=== PATIENT | male | born 1955 | race Caucasian/White ===

== ENCOUNTER 2018-12-15 07:11 | Inpatient (IN) ==
--- NOTE | 2018-12-02 15:45 | PAT Medication Instructions ---
Medication Instructions Date of Service December 02, 2018 Home Medications allopurinol 300 mg PO QAM alpha lipoic acid 600 mg PO QAM amlodipine 5 mg PO UD PRN aspirin [Aspir-81] 81 mg PO QPM aspirin [Aspir-81] 162 mg PO QAM cholecalciferol (vitamin D3) [Vitamin D3] 2,000 unit PO DAILY glucos sul 4MNu-vdy-ruqjn-C-Mn [Glucosamine Chondroitin] 2 cap PO QAM hydrocodone-acetaminophen 1 tab PO UD PRN fozbr-sj-8-hec-gvh-jieosqc-ast [krill oil] 1 cap PO DAILY metformin 500 mg PO BID potassium chloride 8 meq PO BID potassium chloride 10 meq PO QAM spironolactone 25 mg PO BID turmeric root extract 500 mg PO DAILY ASK your prescriber and surgeon aspirin [Aspir-81] 81 mg PO QPM aspirin [Aspir-81] 162 mg PO QAM STOP taking 2 weeks before surgery (or as soon as possible if surgery is within 2 weeks) alpha lipoic acid 600 mg PO QAM glucos sul 4HFi-qik-mtwkn-C-Mn [Glucosamine Chondroitin] 2 cap PO QAM edlxk-aj-2-zqh-afm-oxxeors-ast [krill oil] 1 cap PO DAILY turmeric root extract 500 mg PO DAILY DO NOT take the morning of surgery cholecalciferol (vitamin D3) [Vitamin D3] 2,000 unit PO DAILY metformin 500 mg PO BID potassium chloride 8 meq PO BID potassium chloride 10 meq PO QAM spironolactone 25 mg PO BID Take morning of surgery With a small sip of water, OTHERWISE NOTHING TO EAT OR DRINK AFTER MIDNIGHT: allopurinol 300 mg PO QAM amlodipine 5 mg PO UD PRN (if needed) hydrocodone-acetaminophen 1 tab PO UD PRN (okay to take up to 4 hours prior to surgery if needed) Take evening before surgery amlodipine 5 mg PO UD PRN (if needed) hydrocodone-acetaminophen 1 tab PO UD PRN (if needed) metformin 500 mg PO BID potassium chloride 8 meq PO BID spironolactone 25 mg PO BID Other Notes If you have any questions please call us at [phone] or [phone] or [phone] or [phone]
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
[2018-12-03 12:50] LABS: Basophils # (auto) 0.02 K/uL (0-0.2); Basophils % (auto) 0.3 %; Eosinophils # (auto) 0.45 K/uL (0-0.5); Eosinophils % (auto) 6.1 %; Hematocrit (blood only) 44.6 % (42-52); Hemoglobin 15.2 g/dL (14.0-18.0); Immature Granulocytes # (auto) 0.02 K/uL (0.00-0.02); Immature Granulocytes % (auto) 0.3 %; Lymphocytes # (auto) 1.41 K/uL (1.2-3.4); Lymphocytes % (auto) 19.1 %; Mean Corpuscular Hgb Conc 34.1 g/dL (32-36); Mean Corpuscular Volume 91.6 fL (80-100); Mean Platelet Volume 11.4 fL (7.4-10.4); Monocytes # (auto) 0.64 K/uL (0.11-0.59); Monocytes % (auto) 8.7 %; Neutrophils # (auto) 4.83 K/uL (1.4-6.5); Neutrophils % (auto) 65.5 %; Platelet Count 201 K/uL (130-400); RDW Coefficient of Variation 14.2 % (11.5-14.5); RDW Standard Deviation 47.8 fL (36.4-46.3); Red Blood Count 4.87 M/uL (4.7-6.1); White Blood Count 7.37 K/uL (4.8-10.8)
[2018-12-03 12:52] LABS: Appearance Urine Clear (Clear); Bacteria Urine Automated Negative (Negative); Bilirubin Urine Negative (Negative); Blood Urine Negative (Negative); Cast Urine Automated 0 /lpf (0-5); Color Urine Yellow; Epithelial Cell Urine Auto 0-5 /lpf (0-5); Glucose Urine UA Negative (Negative); Ketones Urine Negative (Negative); Leukocyte Esterase Urine Trace (Negative); Nitrite Urine Negative (Negative); Protein Urine Negative (Negative); RBC Urine Automated 0-4 /hpf (0-4); Urobilinogen Urine Negative (Negative)
[2018-12-03 12:56] LABS: Albumin Level 3.7 gm/dl (3.4-5.0); BUN Creatinine Ratio 17.7 (10-20); Calcium 10.5 mg/dl (8.5-10.1); Creatinine Clr Calc Pharmacy 91.8 ml/min; Est GFR (African American) 79.7; Est GFR (Non-African American) 68.8; Potassium 4.3 mmol/L (3.5-5.1)
[2018-12-03 13:01] LABS: Partial Thromboplastin Ratio 1.1; Partial Thromboplastin Time 29.6 Seconds (21.0-31.0); Prothrombin Time 10.6 Seconds (9.0-12.0)
[2018-12-03 13:28] LABS: Estimated Average Glucose 137 mg/dl; Hemoglobin A1C 6.4 % (4.5-5.6)
--- NOTE | 2018-12-14 21:47 | History & Physical Report ---
Date of Service December 14, 2018 Assessment & Plan (1) Degenerative joint disease of right hip: I have indicated the patient for right total hip replacement. The risks, benefits and complications of surgery were explained to the patient which include but not limited to infection, acute blood loss, DVT/PE, injury to nerves, vessels, bone, soft tissue, arthrofibrosis, chronic pain, failure of the prosthesis, hip dislocation, leg length discrepancy, need for additional surgery, cardiac and pulmonary events and . The patient wished to proceed with surgery and informed consent was obtained at this time. We will plan for ASA post-operatively for DVT prophylaxis. Upon discharge the patient will be discharged home with home health services. Appropriate clearances by PCP, cardio and spine were obtained. History of Present Illness Chief Complaint: Right hip pain/djd Primary Care Provider: Sabino Dueñas MD The patient is a 63 year old male who presents with complaints of severe right hip pain and DJD. The patient has failed outpatient conservative treatments to this point which included NSAIDs, IA corticosteroid injection, home exercise/walking program. The patient's pain and limited function have progressed to the point where they severely hinder their activities of daily living and they no longer tolerate exercise programs. They are requesting to proceed with total hip replacement surgery. Allergies Allergy/AdvReac Type Severity Reaction Status Date / Time No Known Allergies Allergy Verified 12/15/18 07:49 Home Medications Home Medications Medication Instructions Recorded Confirmed Type allopurinol 300 mg PO QAM 11/16/18 12/15/18 History alpha lipoic acid 600 mg PO QAM 11/16/18 12/15/18 History amlodipine 5 mg PO UD PRN 11/16/18 12/15/18 History aspirin [Aspir-81] 81 mg PO QPM 11/16/18 12/15/18 History aspirin [Aspir-81] 162 mg PO QAM 11/16/18 12/15/18 History cholecalciferol (vitamin D3) 2,000 unit PO DAILY 11/16/18 12/15/18 History [Vitamin D3] glucos sul 0XVh-ewi-gxffl-C-Mn 2 cap PO QAM 11/16/18 12/15/18 History [Glucosamine Chondroitin] hydrocodone-acetaminophen 1 tab PO UD PRN 11/16/18 12/15/18 History vgmuy-qa-1-stn-qfs-uncomcd-ast 1 cap PO DAILY 11/16/18 12/15/18 History [krill oil] metformin 500 mg PO BID 11/16/18 12/15/18 History potassium chloride 8 meq PO BID 11/16/18 12/15/18 History potassium chloride 10 meq PO QAM 11/16/18 12/15/18 History spironolactone 25 mg PO BID 11/16/18 12/15/18 History turmeric root extract 500 mg PO DAILY 11/16/18 12/15/18 History Past Med/Surg History Medical History Diabetes NIDDM Gout Hypertension Osteoarthritis Pacemaker IMPLANTED 2010; [facility]; LAST PACER CHECK 08/19/18 Sleep apnea CPAP Thoracic aortic aneurysm 4.1CM Surgical History History of cardiac cath 2000= NO STENTS History of hernia surgery History of left cataract surgery History of pacemaker History of right cataract surgery History of tonsillectomy and adenoidectomy Family History Mother Family history of uterine cancer Social History Preferred Language: Spanish Communication Ability: Effective Assistant Grocery Store Manager Required: No Beliefs That Will Affect Care: None Current Living Situation: Spouse Other Information That Helps Us Care for You: No Feels Safe at Home: Yes Smoking Status: Light tobacco smoker Tobacco Type: cigars Do You Dip or Chew Tobacco: No (QUIT 10 YEARS) Smoking End Date: RARE HX CIGAR INTERMITTENT Second Hand Exposure: No (HX OF, QUIT 8 YRS AGO) Hx Alcohol Use: Yes Alcohol type: beer and hard liquor Hx Substance Use: No Review of Systems Review of Systems: All systems reviewed & are unremarkable except as noted in HPI & below Constitutional: as per Subjective / HPI Physical Exam Physical Exam: RLE NVSI +EHL/FHL/TA/GS SILT grossly, +2 DP pulse, compartments soft NT, limited painful ROM, antalgic gait. Constitutional: WD/WN, vitals as above Eyes: PERRL, conjunctivae normal, anicteric sclerae ENMT: external ear and nose normal, oropharynx normal Neck: trachea midline, no thyromegaly Respiratory: normal respiratory effort, lungs clear to auscultation Cardiovascular: RRR, no murmur, no edema Gastrointestinal (Abdomen): normal bowel sounds, soft, nontender, no hepatosplenomegaly Musculoskeletal: no cyanosis or clubbing, extremities motor strength 5/5 Skin: no rashes, warm and dry Neurologic: patellar DTR's 2+ bilat, sensation intact Psychiatric: A+Ox3, euthymic affect Lymphatic: no cervical or axillary lymphadenopathy Results & Data Diagnostic Findings Multiple views of the hip demonstrates severe DJD with complete loss of the joint space. +osteophytes, +sclerosis, +subchondral cysts.
[~2018-12-15 07:11] MED LIST: ACETAMINOPHEN 500 MG TAB PO SCH; BACITRACIN INJ 50,000 UNIT VIAL ONE; BUPIVACAINE 0.5 % 5 MG/1 ML PF 10ML VIAL ONE; CeleBREX 200 MG CAP PO SCH; FAMOTIDINE 20 MG TAB PO SCH; LIDOCAINE HCL 2% 2 ML VIAL/AMP(20MG/ML) INFIL ONE; LR 500ML BOLUS, THEN 15ML/HR IV SCH; METOCLOPRAMIDE HCL 10 MG TABLET PO SCH; MIDAZOLAM HCL 1 MG/ML 2ML VIAL ONE; PROPOFOL IV EMULSION 10 MG/ML 20 ML VIAL IV ONE; TRANEXAMIC ACID 1,000 MG **IV Intra-op IV SCH; TRANEXAMIC ACID 1,000 MG **IV Pre-op IV SCH; dexAMETHasone 4 MG TAB PO SCH; fentaNYL citrate 100 MCG/2 ML VIAL ONE
--- NOTE | 2018-12-15 08:57 | History & Physical Bridge Note ---
Date of Service December 15, 2018 History & Physical Bridge Note I have examined the patient, reviewed the History & Physical and in the interval since the performance of the History & Physical I have noted the following changes of clinical significance: no changes noted
[2018-12-15] MEDS ORDERED: CEFAZOLIN 3000MG/72.5 ML BAG IV ONE (09:03)
[2018-12-15] MEDS ORDERED: ROPIVACAINE 0.5% HCL/PF 150 MG, BUPIVACAINE 0.5% MPF 30 ML, EPINEPHrine 30MG/30ML (OR U... INSTIL SCH (09:30)
[2018-12-15] MEDS ORDERED: ATROPINE SULFATE 0.1 MG/ML 10ML SYR IV PRN (09:39)
[2018-12-15] MEDS ORDERED: ePHEDrine sulfate 50 MG/ML AMP IV PRN (09:39)
[2018-12-15] MEDS ORDERED: HYDROmorphone INJ 2 MG/ML SYR/VIAL IV PRN (09:39)
[2018-12-15] MEDS ORDERED: fentaNYL citrate 100 MCG/2 ML VIAL IV PRN (09:39)
[2018-12-15] MEDS ORDERED: PHENYLEPHRINE HCL 10 MG/ML VIAL ONE (10:10)
[2018-12-15] MEDS ORDERED: PHENYLEPHRINE 100MCG/ML 5ML SYR ONE (10:10)
--- NOTE | 2018-12-15 10:52 | Post Operative Brief Note ---
Immediate Post Op Note v1 Date of Surgery December 15, 2018 Pre & Post Diagnosis Operation Date: 12/15/18 09:20 Pre-Op Diagnosis: RIGHT HIP OSTEOARTHRITIS Post-Op Diagnosis: RIGHT HIP OSTEOARTHRITIS Procedure Operation Date: 12/15/18 09:20 Actual Procedures p Right Posterior Total Hip Arthroplasty(Right) - Catalino Sharp DO Surgeon Catalino Sharp DO Departmental Shipping Clerk Marcello Vitale Estimated Blood Loss 150 Findings Consistent with Post-Op Diagnosis Fluids 1500 CC LR Specimens femoral head Anesthesia Type Spinal MAC Disposition Disposition: Recovery Room Overlapping Procedure I was present for: the critical portions of procedure. I was immediately available: during the entire case. Back up surgeon: was not required during procedure.
[2018-12-15] MEDS ORDERED: ePHEDrine sulfate 50 MG/ML SYR ONE (10:59)
--- NOTE | 2018-12-15 11:07 | Operative Report ---
Post Operative Report Pre & Post Diagnosis Operation Date: 12/15/18 09:20 Pre-Op Diagnosis: RIGHT HIP OSTEOARTHRITIS Post-Op Diagnosis: RIGHT HIP OSTEOARTHRITIS Procedure Operation Date: 12/15/18 09:20 Actual Procedures p Right Posterior Total Hip Arthroplasty(Right) - Catalino Sharp DO Surgeon Catalino Sharp DO Blue Leather Setter Marcello Vitale Estimated Blood Loss 150 Findings Consistent with Post-Op Diagnosis Fluids 1500 cc LR Specimens Femoral head Anesthesia Type Spinal MAC Complications none Disposition Disposition: Recovery Room Indications The patient is a 63-year-old male who presents with severe progressive right hip DJD who has failed outpatient conservative treatments. I indicated the patient for a total hip replacement and the risks and benefits were explained in detail which included but not limited to infection, bleeding, blood clot, damage to surrounding bone, nerves, vessels, soft tissue, hip dislocation, failure of the prosthesis, leg length discrepancy, need for additional surgery and . The patient agreed to proceed with replacement of the hip and informed consent was obtained. Appropriate clearances were obtained. Description of Procedure COMPONENTS USED: Sabina [employer] hip system: Acetabulum size 58, femur size 13.5 extended offset, femoral head 36+3.5, liner 5037, acetabular screw 30 mm x 1. Following induction of adequate spinal anesthesia, the patient was transferred to the OR table and placed in lateral decubitus position with left hip down. The right hip was prepped and draped in the typical sterile fashion. A timeout was performed, patient identified and site mike confirmed. Appropriate antibiotics were given. A standard posterolateral/Mateo-Langenbeck incision was made. Subcutaneous tissue was sharply dissected. Electrocautery was utilized for hemostasis. The fascia was incised throughout the length of the wound and retracted with the Charnley retractor. The bursa was taken down and the short external rotators were identified. The piriformis was tagged with #1 Vicryl. The short external rotators and capsule were divided from the posterior aspect of the femur using electrocautery. The posterior capsule was tagged with #1 Vicryl. Both external rotators and posterior capsule were swept posterior and protected, along with protecting the sciatic nerve. The hip was dislocated by flexion and internally rotation in a controlled manner and exposure of the femoral neck was gained with an old-style Hohmann and a blunt cobra retractor. A femoral cutting guide was utilized for making the appropriate level femoral neck cut with reciprocating saw. The femoral head was removed, measured and reserved on the back table. Next, attention was turned to the acetabulum. A po sterior and anterior offset retractor was placed to gain adequate exposure. Acetabular labrum as well as posterior capsule elements were removed using electrocautery and forceps. Fovea centralis was cleared of all soft tissue. Sequential reaming was performed starting at 48 mm and carried up to a 57 mm and decision was made to proceed with impaction of a 50 mm trabecular metal cup. This was impacted and held using a single 30 mm bone screw. The trial acetabular liner was placed at this time. Next, attention was turned to the proximal femur where a Bovie and pickup was used to further clear short external rotators from their insertion on the femur. Box osteotome and canal finder was used to gain access to the femoral canal and the lateral reamer on power was used to further open the proximal lateral canal. Sequentially rasping was carried up to a 13.5 which gave good fit and fill of the proximal femur. A trial reduction was carried out with a extended offset femoral neck component a 36+3.5 mm femoral head. The trial reduction was stable in all degrees of rotation with no naxv-gr-drlz impingement. The hip was dislocated, trial components were removed and access to the acetabulum was re-established. The trial liner was removed and the cup was irrigated to ensure all debris was removed. The final acetabular liner was inserted and properly seated in the cup. Access to the femur was once more gained and the size 13.5 femoral stem with extended offset was impacted into position. The hip was once more assessed with the 36+3.5 mm femoral head. Stability was accessed and found to be excellent with equal leg lengths. The hip was dislocated for the last time and the final 36+3.5 ceramic femoral head was impacted in place and the hip was reduced. Range of motion was checked once again and found to be stable. A Betadine soak was performed. After 3 minutes, the hip was once more irrigated with copious sterile saline solution with bacitracin. The jolene-incisional soft tissue was injected utilizing [place] ortho mix which includes a combination of Ropivicaine 0.5% 150mg, Bupivicaine 0.5%/Epinephrine 1:200,000 30ml, Toradol 30mg, Dexamethasone 4mg, Ketamine 10mg, Clonidine 100mcg and NSS 30ml Orthomix solution. The piriformis, external rotators and capsule were repaired to the greater trochanter through bone tunnels using #5 FiberWire. The fascia was closed using #1 Vicryl, subcutaneous tissue was closed using 2-0 Vicryl, and skin was closed with 3-0 V-lock suture and Dermabond Prineo. Sterile dressings were applied which included ever, 4x4s and tegaderm adhesive dressing. The patient tolerated the procedure well and was transported to PACU in stable condition. Due to the complex nature of the procedure, the entire surgery was performed with the operational assistance of Marcello Vitale PA-C. The or assistant, under direct supervision, was involved in the actual performance of all aspects of the surgical procedure including patient positioning, hemostasis, tissue retraction, instrument management and wound closure. I attest to the content of the Intraoperative Record and any orders documented therein. Any exceptions are noted below.
--- NOTE | 2018-12-15 11:44 | XRay Report ---
AP pelvis and right hip 2 views CLINICAL HISTORY: Postop hip arthroplasty COMPARISON: None. DISCUSSION: There are postsurgical changes of a total right hip arthroplasty. There is no dislocation . The femoral and acetabular components appear well seated. There is air in the soft tissues consiste nt with recent surgery IMPRESSION: Postsurgical changes of a total right hip arthroplasty Electronically signed by: Rehan Bales M.D. 12/15/2018 11:43 AM
--- NOTE | 2018-12-15 12:33 | Anesthesiology Progress Note ---
Date of Service December 15, 2018 Anesthesia Post Procedure Vital Signs Vital Signs: Temp Pulse Pulse Resp BP Pulse Ox 12/15/18 12:20 36.4 C L 88 20 120/72 99 12/15/18 12:10 85 16 107/74 98 12/15/18 12:00 89 20 112/75 97 12/15/18 11:50 85 18 128/73 97 12/15/18 11:40 90 24 101/72 98 12/15/18 11:30 85 20 113/67 98 12/15/18 11:23 36.1 C L 90 18 104/65 99 12/15/18 08:18 36.5 C 74 20 167/97 H 99 Pain Intensity Right Hip: Pain Intensity: 3 Transfer of Care Handoff Completed per policy Notes Mental Status: alert / awake / arousable and participated in evaluation Patient Amnestic to Procedure: Yes Nausea / Vomiting: adequately controlled Pain: adequately controlled Airway Patency, RR, SpO2: stable & adequate BP & HR: stable & adequate Hydration State: stable & adequate Anesthetic Complications: no major complications apparent
[2018-12-15] MEDS ORDERED: AMLODIPINE BESYLATE 5 MG TAB PO PRN (12:47)
[2018-12-15] MEDS ORDERED: BISACODYL 10 MG SUPP PR PRN (12:47)
[2018-12-15] MEDS ORDERED: ONDANSETRON INJ 2 MG/ML 2 ML VIAL IV PRN (12:47)
[2018-12-15] MEDS ORDERED: HYDROmorphone INJ 0.5 MG/0.5 ML SYR IV PRN (12:47)
[2018-12-15] MEDS ORDERED: MAGNESIUM HYDROXIDE SUSP 30 ML UDC PO PRN (12:47)
[2018-12-15] MEDS ORDERED: NALOXONE HCL 0.4 MG/1 ML VIAL/CARP IV PRN (12:47)
[2018-12-15] MEDS ORDERED: METOCLOPRAMIDE HCL INJ 5 MG/ML 2 ML VIAL IV PRN (12:47)
[2018-12-15] MEDS ORDERED: SODIUM CHLORIDE 0.9% 1000ML 1,000 ML IV SCH (13:00)
[2018-12-15] MEDS: ACETAMINOPHEN 500 MG TAB PO SCH ×2 (14:05→21:21)
[2018-12-15] MEDS: KETOROLAC TROMETHAMINE 15 MG/ML VIAL IV SCH ×2 (14:05→18:00)
--- NOTE | 2018-12-15 15:34 | Orthopedic Progress Note ---
Date of Service December 15, 2018 Assessment & Plan (1) Degenerative joint disease of right hip: Status post right total hip arthroplasty -Ancef x24 -DVT prophylaxis: SCDs, teds, ASA twice daily -Weight-bear as tolerates right lower extremity -Posterior hip precautions -PT 4/OT -Glycemic consult -A.m. labs -Postop x-ray demonstrate a well aligned well fixed orthopedic prosthesis without fracture or dislocation. -DC planning Subjective Post Operative Progress Note Patient seen sitting up in bed, comfortable, denies complaints, pain well controlled, no acute issues. Review of Systems Review of Systems: All systems reviewed & are unremarkable except as noted in HPI & below Constitutional: as per Subjective / HPI Physical Exam Physical Exam: RLE NVSI +EHL/FHL/TA/GS SILT grossly, +2 DP pulse, compartments soft NT, dressing cdi. Constitutional: WD/WN, vitals as above Results & Data Vital Signs (Past 12 Hours) Vital Signs Temp Pulse Pulse Resp BP Pulse Ox 12/15/18 13:42 36.5 C 95 H 18 114/71 96 12/15/18 13:19 18 124/70 12/15/18 12:45 36.4 C L 90 16 118/78 97 12/15/18 12:35 85 20 118/70 98 12/15/18 12:20 36.4 C L 88 20 120/72 99 12/15/18 12:10 85 16 107/74 98 12/15/18 12:00 89 20 112/75 97 12/15/18 11:50 85 18 128/73 97 12/15/18 11:40 90 24 101/72 98 12/15/18 11:30 85 20 113/67 98 12/15/18 11:23 36.1 C L 90 18 104/65 99 12/15/18 08:18 36.5 C 74 20 167/97 H 99
[2018-12-15] MEDS ORDERED: PHARMACY GLYCEMIC MGMT CONSULT PRN (15:55)
--- NOTE | 2018-12-15 16:08 | Pharmacy Report ---
Glycemic Control Consultation - Date of Service December 15, 2018 - Scope Scope: Glycemic Pharmacist consulted by Dr Sharp on 12/15/18 for glycemic control and to write orders per formerly [facility] inpatient glycemic control protocol - Objective Weight: 124.012 kg Accuchecks BSG (last 24hrs): 12/15/18 12/15/18 07:52 11:27 POC Glucose 141 H 165 H HbA1c: Hemoglobin A1c 6.4 % (4.5-5.6) H 12/03/18 12:01 - Recent Pertinent Medications Outpatient Anti-diabetic Regimen: * Metformin 500mg BIDM * A1c = 6.4 % 12/03/18 - Assessment & Plan Assessment & Plan: ASSESSMENT: * Mr. Garcia is a 63yo M POD 0, hip replacement. His outpt glycemic management is adequate as evidenced by his A1C of 6.4%. He is maintained only on orals at home. He also endorses a shot of apple cider vinegar with every meal to help control his pre-diabetes. * He received DXM 8mg PO perioperatively. PLAN FOR INPATIENT GLYCEMIC CONTROL: * Continue home Rx of metformin * Basal insulin * none indicated at this time * Bolus insulin * NovoLog per scale ACHS or Q6hrs while NPO * Goal Range: Low 110 mg/dL - High 140 mg/dL * Correction Factor: 20 mg/dL/unit * Nutritional / Prandial insulin per carb ratio of 1 unit per 6 grams CHO consumed * will add 00,04 checks * Please note that the plan above was derived based on current level of insulin resistance and hospital stress. These recommendations are appropriate for inpatient admission only. Plan of care upon discharge will need to be reassessed to avoid potential outpatient hypo/hyperglycemia. Thank you.
[2018-12-15] MEDS ORDERED: METFORMIN HCL 500 MG TAB PO SCH (17:00)
[2018-12-15] MEDS: CEFAZOLIN 2000MG 2,000 MG/15 ML SYR IV SCH (17:54)
[2018-12-15] MEDS: INSULIN ASPART 100 UNITS/ML 3 ML PEN SC SCH ×2 (18:22→21:26)
[2018-12-15] MEDS ORDERED: SENNA 8.6 MG TAB PO SCH (21:00)
[2018-12-15] MEDS ORDERED: INSULIN GLARGINE SOLOSTAR 100 UNITS/ML 3 ML PEN SC ONE (21:15)
[2018-12-15] MEDS: DOCUSATE SODIUM 100 MG CAP PO SCH (21:21)
[2018-12-15] MEDS: SPIRONOLACTONE 25 MG TAB PO SCH (21:21)
[2018-12-15] MEDS: POTASSIUM CHLORIDE 10 MEQ TABCR PO SCH (21:21)
[2018-12-15] MEDS: OXYCODONE HCL IR 5 MG TAB (IMMEDIATE RELEASE) PO PRN (21:30)
[2018-12-16] MEDS: CEFAZOLIN 2000MG 2,000 MG/15 ML SYR IV SCH (00:18)
[2018-12-16] MEDS: KETOROLAC TROMETHAMINE 15 MG/ML VIAL IV SCH ×2 (00:18→06:07)
[2018-12-16] MEDS: INSULIN ASPART 100 UNITS/ML 3 ML PEN SC SCH ×4 (00:27→12:21)
[2018-12-16] MEDS: ACETAMINOPHEN 500 MG TAB PO SCH ×2 (06:07→13:50)
[2018-12-16 06:42] LABS: Basophils # (auto) 0.01 K/uL (0-0.2); Basophils % (auto) 0.1 %; Hematocrit (blood only) 40.2 % (42-52); Hemoglobin 13.7 g/dL (14.0-18.0); Immature Granulocytes # (auto) 0.07 K/uL (0.00-0.02); Immature Granulocytes % (auto) 0.4 %; Lymphocytes # (auto) 0.66 K/uL (1.2-3.4); Lymphocytes % (auto) 3.9 %; Mean Corpuscular Hgb Conc 34.1 g/dL (32-36); Mean Corpuscular Volume 89.3 fL (80-100); Mean Platelet Volume 11.2 fL (7.4-10.4); Monocytes % (auto) 7.1 %; Neutrophils % (auto) 88.5 %; Platelet Count 231 K/uL (130-400); RDW Coefficient of Variation 13.9 % (11.5-14.5); RDW Standard Deviation 45.7 fL (36.4-46.3); White Blood Count 16.94 K/uL (4.8-10.8)
[2018-12-16 07:06] LABS: BUN Creatinine Ratio 29.6 (10-20); Calcium 8.9 mg/dl (8.5-10.1); Creatinine Clr Calc Pharmacy 100.4 ml/min; Est GFR (African American) 91.3; Est GFR (Non-African American) 78.8; Potassium 4.1 mmol/L (3.5-5.1)
--- NOTE | 2018-12-16 08:26 | Orthopedic Progress Note ---
Date of Service December 16, 2018 Assessment & Plan (1) Degenerative joint disease of right hip: Status post right total hip arthroplasty POD#1 -Ancef x24 -DVT prophylaxis: SCDs, teds, ASA twice daily -Weight-bear as tolerates right lower extremity -Posterior hip precautions -PT/OT -Glycemic consult -A.m. labs - hgb 13.7 -Postop x-ray demonstrate a well aligned well fixed orthopedic prosthesis without fracture or dislocation. -DC planning - pending PT eval, home with Subjective Post Operative Progress Note Patient seen sitting at chair at bedside, comfortable, denies complaints, pain well controlled, no acute issues. Review of Systems Review of Systems: All systems reviewed & are unremarkable except as noted in HPI & below Constitutional: as per Subjective / HPI Physical Exam Physical Exam: RLE NVSI +EHL/FHL/TA/GS SILT grossly, +2 DP pulse, compartments soft NT, dressing cdi. Constitutional: WD/WN, vitals as above Results & Data Vital Signs (Past 12 Hours) Vital Signs Temp Pulse Resp BP Pulse Ox 12/16/18 07:15 36.8 C 68 20 135/82 98 12/16/18 03:58 36.3 C L 83 18 143/93 H 99 12/15/18 23:41 36.4 C L 90 18 117/83 95
[2018-12-16] MEDS: SPIRONOLACTONE 25 MG TAB PO SCH (08:38)
[2018-12-16] MEDS: DOCUSATE SODIUM 100 MG CAP PO SCH (08:38)
[2018-12-16] MEDS: POTASSIUM CHLORIDE 10 MEQ TABCR PO SCH (08:39)
[2018-12-16] MEDS: OXYCODONE HCL IR 5 MG TAB (IMMEDIATE RELEASE) PO PRN ×2 (08:43→15:14)
[2018-12-16] MEDS ORDERED: ASPIRIN 325 MG ECTAB PO SCH (09:00)
[2018-12-16] MEDS ORDERED: ALLOPURINOL 300 MG TAB PO SCH (09:00)
[2018-12-16] MEDS ORDERED: MULTIVITAMIN TAB PO SCH (09:00)
[2018-12-16] MEDS ORDERED: INSULIN GLARGINE SOLOSTAR 100 UNITS/ML 3 ML PEN SC STA (09:26)
[2018-12-16] MEDS ORDERED: CeleBREX 200 MG CAP PO SCH (21:00)
--- NOTE | 2018-12-18 14:34 | Discharge Summary ---
Date of Service December 18, 2018 Admission HPI Per Admitting Provider The patient is a 63 year old male who presents with complaints of severe right hip pain and DJD. The patient has failed outpatient conservative treatments to this point which included NSAIDs, IA corticosteroid injection, home exercise/walking program. The patient's pain and limited function have progressed to the point where they severely hinder their activities of daily living and they no longer tolerate exercise programs. They are requesting to proceed with total hip replacement surgery. Principal Diagnosis Right total hip replacement Discharge Exam RLE NVSI +EHL/FHL/TA/GS SILT grossly, +2 DP pulse, compartments soft NT, dressing cdi. Constitutional WD/WN, vitals as above Discharge Data Allergies Allergy/AdvReac Type Severity Reaction Status Date / Time No Known Allergies Allergy Verified 12/15/18 07:49 Consultations 12/16/18 08:00 Consult Case Management - Discharge Planning Routine Procedures Performed Operation Date: 12/15/18 09:20 Actual Procedures p Right Posterior Total Hip Arthroplasty(Right) - Catalino Sharp DO Hospital Course (1) Degenerative joint disease of right hip: The patient is a 63-year-old male who presents with long standing history of severe right hip DJD and failed outpatient conservative treatments including NSAIDs, bracing, injections and home walking/exercise program. The patient's symptoms have progressed to the point where it has been difficult to perform even normal activities of daily living. I indicated the patient for a right total hip arthroplasty, the risks, benefits and complications of the procedure include but not limited to infection, bleeding, damage to bone, nerves, vessels, surrounding soft tissue, may develop blood clots, loss of function, leg length discrepancy, dislocation, failure of the components, loosening of the components, the need for additional surgery and . The patient wished to proceed with surgery at this time and informed consent was obtained. Hospital Course: On 12/15/2018 the patient was taken to the operating room, adequate anesthesia administered and underwent a right total hip arthroplasty. The patient tolerated the procedure well and was taken to the PACU in stable condition. Post-operatively the patient was started on a DVT ppx medication and given appropriate IV antibiotics. Consults were placed to physical therapy, occupational therapy and case management. On POD#1, the patient did well overnight and their pain was well controlled. Labs were drawn and the Hgb was 13.7. The patient progressed well with PT. Dressings were changed at this time and the incision was clean, dry and intact. The patients hospital stay was relatively uneventful and they were deemed stable by the orthopedic team and consultants to be discharged home with home health on 12/16/2018. Discharge Instructions: Upon discharge the patient may weight bear as tolerated through their operative extremity. They were instructed to keep the incision clean and dry at all times. The patient may shower but should not submerge the incision, avoid bathing, pools and hot tubes. The patient was given a script for pain medication and should take as instructed. The patient was given a script for DVT ppx ASA 325 mg twice daily and should take as directed. The patient was instructed to not drive or travel for long distances until cleared to do so. If the patient develops any symptoms of fevers, chills, nausea, vomiting, increased redness, swelling, pain or drainage from the surgical site, they should notify the office and/or proceed to the nearest emergency room. The patient should follow up in 10-14 days after surgery for their routine post-operative follow-up appointment and should call the office to confirm the date and time. Status post right total hip arthroplasty POD#1 -Ancef x24 -DVT prophylaxis: SCDs, teds, ASA twice daily -Weight-bear as tolerates right lower extremity -Posterior hip precautions -PT/OT -Glycemic consult -A.m. labs - hgb 13.7 -Postop x-ray demonstrate a well aligned well fixed orthopedic prosthesis without fracture or dislocation. -DC planning - pending PT eval, home with Total Time Total Time Spent Total Time Spent (In Minutes): 30-minutes Total Time Includes: Examination of the Patient, Discharge Planning, Medication Reconciliation and Communication With Other Providers Discharge Plan Discharge Items Patient Disposition: Home - Home Health Services Reason For Visit: RIGHT HIP OSTEOARTHRITIS Discharge Diagnosis: Right total hip replacement Condition: Good Discharge Goals: Decrease discomfort, Improve function, Increase independence and Therapeutic intervention Activity: Per 'Additional Instructions' section Lifting: Wait until after follow-up appointment Bathing Comment: No bathing, showers or hot tubs. Sexual Activity: Wait until after follow-up appointment Exercise/Sports: Wait until after follow-up appointment Driving/Machine Use Comment: No driving till cleared by your surgeon Weightbearing: Right weightbearing Non-emergency contact: Primary Care Provider and Surgeon Call non-emergency contact if: you have any medication questions, your symptoms worsen, your pain is not controlled, your pain is worsening, your pain is unusual for you, your pain is concerning for you, you have a fever, your temperature is above 101, your wound has increased redness, your wound has increased drainage and your wound pain has increased Follow-up/Referrals: Sabino Dueñas MD [Primary Care Provider] - Diet: Regular Addtl Provider Instructions: ACTIVITY RECOMMENDATIONS: SELF CARE INSTRUCTIONS AFTER TOTAL HIP REPLACEMENT Until the incision and soft tissues around your hip have healed, there is a possibility that the hip prosthesis could dislocate. A. Observe the following precautions to prevent dislocation: 1. Don't bend your hip greater than 90 degrees. 2. Avoid crossing your legs or ankles while standing or lying. 3. Sit with your feet placed 6 inches apart. 4. When sitting, keep your knees below your hips. Sit on a firm surface, avoid deep, soft chairs and couches. Use an elevated toilet seat in the bathroom. 5. Don't bend over at the waist. Use a long handled shoehorn and a sock aid to help you put on your shoes and socks. A child health associate can help you orange picker objects that are too high or too low to reach. 6. Keep car riding to a minimum for at least one month after surgery. B. Your balance may be shaky for a while. Use crutches or a walker until directed by your doctor. C. Use hand rails when walking on stairs. D. Wear low heeled shoes with non-slip soles. E. Be sure that your floors are free of things that could trip you - throw rugs, electrical cords, small objects. Avoid wet and waxed floors, especially with crutches and canes. F. Try to walk several times a day with rest periods between. G. Continue with all the exercises taught to you in the hospital. Again, make walking a part of your daily routine. SPECIAL CARE INSTRUCTIONS: VERY IMPORTANT TO READ AND REVIEW A. You may still be at risk for phlebitis and blood clots. 1. Wear surgical stockings (BELINDA hose) for 2 weeks after surgery to improve circulation and reduce swelling. 2. Take Aspirin 325mg twice daily for 4 weeks or as directed by your doctor. This is your blood thinner. 3. High risk patients may be prescribed a stronger blood thinner if necessary. 4. If you are on Coumadin normally, your family doctor/shipping clerk packing should monitor your blood work. Expect a phone call the day of or the day after bloodwork is drawn to adjust your dosage. B. You must take antibiotics before having dental work, bladder, bowel and other surgery. Your doctor will provide you with a permanent card to carry describing precautions. C. Call [facility] if you have a fever, redness or swelling around the incision, cloudy drainage from incision, or sudden increase in pain in your hip, not relieved by your regular pain medication. D. Please call the office at if you have any concerns or questions about your operation or recovery. * YOU MAY SHOWER, NO TUB BATHS UNTIL CLEARED BY YOUR DOCTOR. * WEAR BELINDA HOSE 20 HOURS PER DAY FOR 2 WEEKS. * YOU SHOULD USE A WALKER OR CRUTCHES FOR 2-4 WEEKS. THIS WILL HELP PREVENT STRAIN ON YOUR HIP MUSCLE AND ALLOW IT TO HEAL PROPERLY. YOU MAY WEAN TO A CANE TOLERATED. * MOST PATIENTS WILL HAVE HOME NURSING FOR THERAPY. IF YOU DECIDE TO DO OUTPATIENT PHYSICAL THERAPY, PLEASE SCHEDULE THIS 3 TIMES PER WEEK. *DERMABOND Prineo- This is a mesh tape dressing that is covered with glue. It should remain in place until the incision is properly healed, usually 10-14 days. This dressing is designed to naturally slough off. You may trim the excess mesh tape as it peels off. Incision may be briefly wet in a shower. Dry immediately by blotting with a clean, dry towel. Do not bath or swim until instructed by your doctor. Do not scratch, rub, or pick at the dressing. Do not apply any topical ointments or lotions until dressing is completely removed and/or instructed by your doctor. There may be a small piece of suture material at one end of your incision. Do not pull or trim this. If it is bothersome or catching on clothing, you may cover it with a band-aid. FOLLOW UP VISIT: If appointment is not already scheduled: Please call [facility] to make a follow-up appointment for 2 weeks after your surgery at . Prescriptions: New celecoxib [Celebrex] 200 mg Capsule 200 mg PO BID PRN (Reason: pain) Qty: 28 RF: 0 acetaminophen [Tylenol Extra Strength] 500 mg Tablet 1,000 mg PO Q8 PRN (Reason: pain) Qty: 90 RF: 0 aspirin 325 mg Tablet,Delayed Release (Dr/Ec) 325 mg PO BID Qty: 56 RF: 0 oxycodone 5 mg Tablet 5 mg PO Q6H MDD 6 tabs PRN (Reason: pain) Qty: 30 RF: 0 sennosides [Senokot] 8.6 mg Tablet 17.2 mg PO HS PRN (Reason: constipation) Qty: 28 RF: 0 Continued metformin 500 mg Tablet 500 mg PO BID RF: 0 potassium chloride 8 mEq Capsule, Extended Release 8 meq PO BID RF: 0 amlodipine 5 mg Tablet 5 mg PO UD PRN (Reason: HIGH BLOOD PRESSURE) RF: 0 spironolactone 25 mg Tablet 25 mg PO BID RF: 0 allopurinol 300 mg Tablet 300 mg PO QAM RF: 0 potassium chloride 10 mEq Tablet,Er Particles/Crystals 10 meq PO QAM RF: 0 cholecalciferol (vitamin D3) [Vitamin D3] 2,000 unit Capsule 2,000 unit PO DAILY RF: 0 alpha lipoic acid 600 mg Capsule 600 mg PO QAM RF: 0 [id number] [krill oil] [id number] mg Capsule 1 cap PO DAILY RF: 0 Glucosamine Chondroitin 550-30-1 mg Capsule 2 cap PO QAM RF: 0 Discontinued aspirin [Aspir-81] 81 mg Tablet,Delayed Release (Dr/Ec) 162 mg PO QAM RF: 0 aspirin [Aspir-81] 81 mg Tablet,Delayed Release (Dr/Ec) 81 mg PO QPM RF: 0 turmeric root extract 500 mg Capsule 500 mg PO DAILY RF: 0 hydrocodone-acetaminophen 5-325 mg Tablet 1 tab PO UD PRN (Reason: Pain) RF: 0 Stand-Alone Forms: [employer], Opioid Pain Management [employer]/Other Patient Handouts: Surgery Prevent DVT After, Prediabetes, Replacem ent Hip Total, Replacement Hip After Hospital, Diabetes Meal Planning Discharge Orders: Discharge Order (Routine); Ordered 12/16/18 Ordered By: Catalino Sharp Admission Data Admit Date/Time: 12/15/18 11:22 Attending Provider: Catalino Sharp Admit Provider: Catalino Sharp Primary Care Provider: Sabino Dueñas Service: Surgical Services Other Interventions: Discharge Summary Assessment (RN) Last Done: 12/16/18 10:40 DC Date/Time DO NOT enter until pt leaves facility: 12/16/18 16:19
== END 2018-12-16 16:19 | disposition home health service (06) | DRG 470 ==
LOC: ASU 07:11 → 3E 11:22